=== PATIENT | male | born 2000 | race African-American/Black ===

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

== ENCOUNTER 2018-04-12 07:51 | Emergency (ER) | payer SELFPAY ==
[~2018-04-12] VITALS: Ht 182.9 cm; Wt 95.3 kg
[2018-04-12] MEDS ORDERED: AMOX500T PO (07:57)
[2018-04-12] MEDS ORDERED: HYDR-971 PO (07:57)
[2018-04-12] MEDS ORDERED: IBUP-1060 PO (07:57)
[2018-04-12 07:59] VITALS: BP 159/89
--- NOTE | 2018-04-12 08:05 | PHYS DOC ---
Past Medical History Past Medical History: No Pertinent History Past Surgical History: No Surgical History Alcohol Use: None Drug Use: Marijuana Adult General Chief Complaint Chief Complaint: DENTAL PROBLEM HPI HPI Patient is a 17 year old male who presents with dental pain. Patient has known dental caries. He has had a bad tooth on the lower right molar area over the last several months. He has not been able to see a dentist. Today, he presents complaining of acute on chronic pain. His pain worsened severely over the last 48 hours. No fever. No neck stiffness. No swelling of the oropharynx. Review of Systems Review of Systems Constitutional: Denies fever or chills Eyes: Denies HENT: Denies Respiratory: Denies Musculoskeletal: Denies Integument: Denies rash Neurologic: Denies headache All other systems were reviewed and found to be within normal limits, except as documented in this note. Allergies Allergies Allergies Coded Allergies Type Severity Reaction Last Updated Verified shellfish derived Allergy Severe Anaphylaxis 12/27/16 Yes Physical Exam Physical Exam Constitutional: Well developed, well nourished, no acute distress, non-toxic appearance HENT: Normocephalic, atraumatic, bilateral external ears normal, oropharynx moist, in the area of concern in the mandibular right molar region, there are several cavitatious teeth. There is no drainable or fluctuant fluid collection. No swelling. There is mild gingival injection at the base of the tooth in question. Eyes: PERRLA, EOMI Neck: Normal range of motion, no tenderness Cardiovascular:Heart rate regular rhythm Skin: Warm, dry, no erythema, no rash Neurologic: Alert and oriented X 3 Psychologic: Affect normal EKG EKG [] Radiology/Procedures Radiology/Procedures [] Course & Med Decision Making Course & Med Decision Making Pertinent Labs and Imaging studies reviewed. (See chart for details) Patient is evaluated in the emergency department for dental pain. He does have a cavity in his mouth that is obviously the source of his pain. I advised the patient that I cannot definitively fix this problem in the emergency department. Rather, attempts are made to relieve his pain. He is provided amoxicillin for infection, ibuprofen and [place] for pain. He is given the first dose of these medications in the emergency room and discharged home with prescriptions for the same. He is advised to follow-up with a dentist. Deanna Disclaimer Dragon Disclaimer This electronic medical record was generated, in whole or in part, using a voice recognition dictation system. Departure Departure Impression: Primary Impression: Dental implant pain Disposition: 01 HOME, SELF-CARE Condition: GOOD Referrals: NO PCP (PCP) Patient Instructions: Pain Medicine Instructions, [id number], Dental Pain, [id number] Scripts Amoxicillin (AMOXICILLIN) 500 Mg Tablet 1 TAB PO TID, #30 TAB Prov: SYLWIA MELENDEZ DO 04/12/18 Hydrocodone/Apap 5-325 (NORCO 5-325 TABLET) 1 Each Tablet 1-2 EACH PO PRN Q6HRS PRN for severe pain, #15 as needed for pain Prov: SYLWIA MELENDEZ DO 04/12/18 Ibuprofen (IBUPROFEN) 800 Mg Tablet 800 MG PO PRN TID PRN for PAIN, #30 TAB take with food or milk to avoid upsetting stomach Prov: SYLWIA MELENDEZ DO 04/12/18 SYLWIA MELENDEZ DO Apr 12, 2018 08:05
[2018-04-12] MEDS ORDERED: IBUPROFEN 400 MG TABLET. PO ONE (08:15)
[2018-04-12] MEDS ORDERED: AMOXICILLIN 250 MG CAPSULE. PO ONE (08:15)
[2018-04-12] MEDS ORDERED: HYDROcodone/APAP 5/325MG 1 TAB TABLET PO ONE (08:15)
== END 2018-04-12 08:30 | disposition home or self-care (01) ==
LOC: ER 07:51
DX: G89.29 Other chronic pain (principal); K08.89 Other specified disorders of teeth and supporting structures; Z91.013 Allergy to seafood
CPT/HCPCS: 99284

== ENCOUNTER 2018-04-18 08:12 | Emergency (ER) | payer SELFPAY ==
[~2018-04-18] VITALS: Ht 182.9 cm; Wt 95.3 kg
[~2018-04-18 08:12] MED LIST: AMOX500T PO; HYDR-971 PO; IBUP-1060 PO
[2018-04-18 08:15] VITALS: BP 160/93
[2018-04-18] MEDS ORDERED: DICL50TA4 PO (09:11)
[2018-04-18] MEDS ORDERED: AMOX500T PO (09:11)
[2018-04-18] MEDS ORDERED: NAPROXEN 500 MG TABLET PO STA (09:12)
--- NOTE | 2018-04-18 09:12 | PHYS DOC ---
Past Medical History Past Medical History: No Pertinent History Past Surgical History: No Surgical History Additional Information: reports occasional cigar use Alcohol Use: Occasionally Drug Use: Marijuana Adult General Chief Complaint Chief Complaint: DENTAL PROBLEM HPI HPI Patient is a 17 year old male with no significant medical history who presents today with 10 out of 10 right lower gum dental pain radiating to the right upper gum that has been going on for 3 months. Patient states he is not able to see a dentist because he does not have dental insurance and everything is out of pocket. Patient describes the pain as sharp and constant. Patient states he has tried taking [id number] pain relievers with no relief. He states he was seen in the ED a couple days ago and was given prescription for amoxicillin and hydrocodone which he lost while shopping with the parents. Patient denies any fever or trismus. Review of Systems Review of Systems Constitutional: Denies fever or chills [] Eyes: Denies change in visual acuity, redness, or eye pain [] HENT: Reports dental pain. Denies nasal congestion or sore throat [] Musculoskeletal: Denies back pain or joint pain [] Integument: Denies rash or skin lesions [] Neurologic: Denies headache, focal weakness or sensory changes [] All other systems were reviewed and found to be within normal limits, except as documented in this note. Allergies Allergies Allergies Coded Allergies Type Severity Reaction Last Updated Verified shellfish derived Allergy Severe Anaphylaxis 12/27/16 Yes Physical Exam Physical Exam Constitutional: Well developed, well nourished, no acute distress, non-toxic appearance. [] HENT: Normocephalic, atraumatic, bilateral external ears normal, oropharynx moist, no oral exudates, nose normal. [] Eyes: PERRLA, EOMI, conjunctiva normal, no discharge. [] Teeth #31 is decayed and broken. Scattered dental caries throughout the rest of the teeth. No gum erythema, no swelling to the gums. Skin: Warm, dry, no erythema, no rash. [] Back: No tenderness, no CVA tenderness. [] Extremities: No tenderness, no cyanosis, no clubbing, ROM intact, no edema. [] Neurologic: Alert and oriented X 3, normal motor function, normal sensory function, no focal deficits noted. [] Psychologic: Affect normal, judgement normal, mood normal. [] Current Patient Data Vital Signs Vital Signs Date Time Temp Pulse Resp B/P (MAP) Pulse Ox O2 Delivery O2 Flow Rate FiO2 04/18/18 08:15 99.0 54 16 160/93 (115) 100 Room Air 99.0 EKG EKG [] Radiology/Procedures Radiology/Procedures [] Course & Med Decision Making Course & Med Decision Making Pertinent Labs and Imaging studies reviewed. (See chart for details) This is a 17-year-old male patient with dental caries see them appear infected. Patient was discharged with amoxicillin and Diclofenac. Follow-up with his dentist as soon as he can. Dragon Disclaimer Dragon Disclaimer This electronic medical record was generated, in whole or in part, using a voice recognition dictation system. Departure Departure Impression: Primary Impression: Dentalgia Additional Impression: Infected dental caries Disposition: HOME, SELF-CARE Condition: STABLE Referrals: NO PCP (PCP) Follow-up with your dentist as soon as possible Patient Instructions: Dental Caries Additional Instructions: Your evaluation in the emergency room is noted for dental caries. Please establish care with a dentist for follow-up. Complete your oral antibiotics. Take the rest of the pain medications as prescribed. Scripts Diclofenac Sodium (DICLOFENAC SODIUM) 50 Mg Tablet. 1 TAB PO BID, #60 TAB 0 Refills Prov: HAILE BRITT APRN 04/18/18 Amoxicillin (AMOXICILLIN) 500 Mg Tablet 1 TAB PO BID, #20 TAB Prov: HAILE BRITT APRN 04/18/18 Problem Qualifiers HAILE BRITT APRN Apr 18, 2018 09:12
[2018-04-18] MEDS ORDERED: HYDROcodone/APAP 5/325MG 1 TAB TABLET PO ONE (09:15)
== END 2018-04-18 09:28 | disposition home or self-care (01) ==
LOC: ER 08:12
DX: K02.9 Dental caries, unspecified (principal); F17.210 Nicotine dependence, cigarettes, uncomplicated; Z91.013 Allergy to seafood
CPT/HCPCS: 99283

== ENCOUNTER 2021-11-01 13:23 | Emergency (ER) | payer SELFPAY ==
[~2021-11-01] VITALS: Ht 177.8 cm; Wt 102.9 kg
[~2021-11-01 13:23] MED LIST changes: +DICL50TA4 PO; +HYDR-3164 PO; -HYDR-971 PO
[2021-11-01 13:28] VITALS: BP 144/82
--- NOTE | 2021-11-01 13:42 | PHYS DOC ---
Past Medical History Past Medical History: No Pertinent History Past Surgical History: No Surgical History Smoking Status: Current Some Day Smoker Alcohol Use: Occasionally Drug Use: Marijuana General Adult EDM: Chief Complaint: ALLERGIC REACTION HPI: HPI: Patient is a 20-year-old male who presents today with exposure to shrimp. 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 Patient states that happened yesterday, he was given an allergy relief tablet at work, and all of the symptoms have ceased to be noticed at this time. Patient states he was instructed to follow-up with a physician for his employment. Patient denies chest pain, shortness of breath, fever chills, swelling of his lips face or tongue, any difficulty swallowing. Review of Systems: Review of Systems: Constitutional: Denies fever or chills. [] Eyes: Denies change in visual acuity. [] HENT: Denies nasal congestion or sore throat. [] Respiratory: Denies cough or shortness of breath. [] Cardiovascular: Denies chest pain or edema. [] GI: Denies abdominal pain, nausea, vomiting, bloody stools or diarrhea. [] : Denies dysuria. [] Musculoskeletal: Denies back pain or joint pain. [] Integument: Denies rash. [] Neurologic: Denies headache, focal weakness or sensory changes. [] Endocrine: Denies polyuria or polydipsia. [] Lymphatic: Denies swollen glands. [] Psychiatric: Denies depression or anxiety. [] Heart Score: C/O Chest Pain: No Risk Factors: Risk Factors: DM, Current or recent (<one month) smoker, HTN, HLP, family history of CAD, obesity. Risk Scores: Score 0 - 3: 2.5% MACE over next 6 weeks - Discharge Home Score 4 - 6: 20.3% MACE over next 6 weeks - Admit for Clinical Observation Score 7 - 10: 72.7% MACE over next 6 weeks - Early Invasive Strategies Allergies: Allergies: Allergies Coded Allergies Type Severity Reaction Last Updated Verified shellfish derived Allergy Severe Anaphylaxis 12/27/16 Yes Physical Exam: PE: Constitutional: Well developed, well nourished, no acute distress, non-toxic appearance. [] HENT: Normocephalic, atraumatic, bilateral external ears normal, oropharynx moist, no oral exudates, nose normal. [] Eyes: PERRLA, EOMI, conjunctiva normal, no discharge. [] Neck: Normal range of motion, no tenderness, supple, no stridor. [] Cardiovascular:Heart rate regular rhythm, no murmur [] Lungs & Thorax: Bilateral breath sounds clear to auscultation [] Abdomen: Bowel sounds normal, soft, no tenderness, no masses, no pulsatile masses. [] Skin: Warm, dry, no erythema, no rash. [] Back: No tenderness, no CVA tenderness. [] Extremities: No tenderness, no cyanosis, no clubbing, ROM intact, no edema. [] Neurologic: Alert and oriented X 3, normal motor function, normal sensory function, no focal deficits noted. [] Psychologic: Affect normal, judgement normal, mood normal. [] Current Patient Data: Vital Signs: Vital Signs Date Time Temp Pulse Resp B/P (MAP) Pulse Ox O2 Delivery O2 Flow Rate FiO2 11/01/21 13:28 98.9 18 18 144/82 (102) 98 Room Air 98.9 EKG: EKG: [] Radiology/Procedures: Radiology/Procedures: [] Course & Med Decision Making: Course & Med Decision Making Pertinent Labs and Imaging studies reviewed. (See chart for details) Patient appears in no acute distress, since this incident happened greater than 18 hours ago and the patient has no signs and symptoms at this time I will discharge him to home. patient is to follow-up with his primary care physician or one of the listed clinics on his discharge treat for further instructions and managemen of any medical issues he should have. Patient is instructed to return here to the emergency department should he experience any chest pain, shortness of breath, or swelling in his lips face or tongue. Opal Huerta Disclaimer: Deanna Disclaimer: This electronic medical record was generated, in whole or in part, using a voice recognition dictation system. Departure Departure Impression: Primary Impression: Normal exam Disposition: HOME / SELF CARE / HOMELESS Condition: STABLE Referrals: NO PCP (PCP) Patient Instructions: Exam, Normal, Adult Additional Instructions: Follow-up with your primary care physician or one of the listed clinics below for further evaluation and management of any medical concerns you may have Return to the emergency department should you have any chest pain, shortness of breath, fever chills, swelling in your lips face tongue or any difficulty with swallowing. [facility] [address] [place] [address] [facility] [address] [place] [address] [facility] [address] [facility] [place] [address] [facility] [address] [place] [address] Count Includes [facility] [address] [place] [address] [facility] [address] [place] [address] [facility] [address] [place] [address] [facility] [address] [place] [address] [facility] [address] [place] [address] [facility] [address] [place] [address] JUAN LAGUERRE APRN November 01, 2021 13:42
== END 2021-11-01 13:45 | disposition home or self-care (01) ==
LOC: ER 13:23
DX: Z91.013 Allergy to seafood (principal); F17.200 Nicotine dependence, unspecified, uncomplicated
CPT/HCPCS: 99281